=== PATIENT | male | born 1930 | race Caucasian/White ===

== ENCOUNTER 2016-09-29 13:25 | Emergency (ER) | payer OTHER ==
[2016-09-29 14:01] VITALS: BP 105/55
--- NOTE | 2016-09-29 14:16 | ED Physician Documentation ---
Eye Problem - HISTORIAN Historian: patient, parent - HPI Stated Complaint: Left eye matting and swelling Chief Complaint: Eye Problems Additional Information: stye lt lower lid Onset: days ago (7) Associated symptoms: pain, redness, matting, eyelid swelling Location: left eye Severity: mild, moderate Apparent Injury: no Context: denies: foreign body, direct trauma - ROS CONST: denies: no problems MS/SKIN/LYMPH: denies: weakness, numbness CVS/RESP: none EYES/ENT: problems with vision - PAST HX Past History: hypertension, other (chf lo thryoid dementia). denies: prior eye problem Allergies/Adverse Reactions: Allergies Allergy/AdvReac Type Severity Reaction Status Date / Time No Known Allergies Allergy Verified 09/29/16 13:43 Home Medications: Ambulatory Orders Medication Instructions Recorded Aspirin EC [Ecotrin] 81 mg PO DAILY 09/29/16 Carvedilol [Coreg] 6.25 mg PO BS 09/29/16 Cyclobenzaprine HCl [Flexeril] 10 mg PO BID 09/29/16 Furosemide [Lasix] 80 mg PO DAILY 09/29/16 Lansoprazole [Prevacid] 30 mg PO DAILY 09/29/16 Levothyroxine Sodium [Synthroid] 50 mcg PO AM 09/29/16 Losartan Potassium [Cozaar] 25 mg PO DAILY 09/29/16 Oxycodone HCl/Acetaminophen 1 each PO Q6 PRN 09/29/16 [Primlev 5-300 mg Tablet] Simvastatin [Zocor] 40 mg PO HS 09/29/16 Spironolactone [Aldactone] 25 mg PO DAILY 09/29/16 - SOCIAL HX Smoking History: non-smoker Alcohol Use: other (daily) Drug Use: none - FAMILY HX Family History: no significant history - VITAL SIGNS Vital Signs: Vital Signs Temp Pulse Resp BP Pulse Ox 97.7 F 72 18 105/55 96 09/29/16 13:51 09/29/16 13:51 09/29/16 13:51 09/29/16 13:51 09/29/16 13:51 - REVIEWED ASSESSMENTS Nursing Assessment Reviewed: Yes Vitals Reviewed: Yes Eye Problem Physical Exam - Physical Exam General Appearance: mild distress Visual Acuity: see nursing assessment, no globe trauma Eyelids: everted for exam (L), stye (L) Conjunctiva and Sclera: injected (L) Corneas: nml inspection EOM: intact Pupils: equal Anterior Chambers: nml inspection Head/ENT: nml inspection Skin: nml color, warm, skin intact Neck/Back: nml inspection Respiratory: no resp distress, breath sounds normal CVS: heart sounds normal, occasional extrasystoles. No: reg rate & rhythm Abdomen: non-tender Neuro/Psych: oriented x3, mood/affect nml Discharge Clincal Impression: stye lt lower eye lid Home Medications: Ambulatory Orders Aspirin EC [Ecotrin] 81 mg PO DAILY 09/29/16 Carvedilol [Coreg] 6.25 mg PO BS 09/29/16 Cyclobenzaprine HCl [Flexeril] 10 mg PO BID 09/29/16 Furosemide [Lasix] 80 mg PO DAILY 09/29/16 Lansoprazole [Prevacid] 30 mg PO DAILY 09/29/16 Levothyroxine Sodium [Synthroid] 50 mcg PO AM 09/29/16 Losartan Potassium [Cozaar] 25 mg PO DAILY 09/29/16 Oxycodone HCl/Acetaminophen [Primlev 5-300 mg Tablet] 1 each PO Q6 PRN 09/29/16 Simvastatin [Zocor] 40 mg PO HS 09/29/16 Spironolactone [Aldactone] 25 mg PO DAILY 09/29/16 Comments: systane polymyxindrops ibu keflex. MUST SEE OPHTHALMOLOGISTS for probable drainage-removal Condition: Good Disposition: 01 HOME, SELF-CARE Decision to Admit: NO Decision Time: 14:20
== END 2016-09-29 14:18 | disposition home or self-care (01) ==
LOC: ED 13:25
DX: H00.015 Hordeolum externum left lower eyelid (principal)
CPT/HCPCS: 99282; 99283